=== PATIENT | male | born 1990 | race Asian ===

== ENCOUNTER 2021-11-06 20:05 | Emergency (ER) | payer SELFPAY ==
[~2021-11-06] VITALS: Ht 177.8 cm; Wt 84.8 kg
[2021-11-06] MEDS ORDERED: ACETAMINOPHEN 500 MG TABLET ONE (20:34)
[2021-11-06] MEDS ORDERED: ACET-66 PO (21:41)
[2021-11-06] MEDS ORDERED: PSEU120T62 PO (21:41)
[2021-11-06] MEDS ORDERED: IBUP-2070 PO (21:41)
[2021-11-06] MEDS ORDERED: ONDA4TAB10 PO (21:41)
[2021-11-06 21:52] VITALS: BP 129/63
== END 2021-11-06 21:54 | disposition home or self-care (01) ==
LOC: EDH 20:05
DX: U07.1 COVID-19 (principal)
CPT/HCPCS: 87635; 87804 ×2; 87880; 99283; C9803